=== PATIENT | male | born 1975 | race Two or more races ===

== ENCOUNTER 2018-11-26 06:10 | Emergency (ER) | payer BC, OTHER, SELFPAY ==
--- NOTE | 2018-11-26 06:18 | EDM.PDOC ---
ED HPI GENERAL MEDICAL PROBLEM - General Chief Complaint: General Stated Complaint: CHEST PAIN Time Seen by Provider: 11/26/18 06:18 Source of Information: Reports: Patient - History of Present Illness INITIAL COMMENTS - FREE TEXT/NARRATIVE: HISTORY AND PHYSICAL: History of present illness: [Patient presents with subjective intermittent fever and cough over the last 24 hours myalgias general malaise chest pain on deep inspiration No nausea vomiting and loose stools no chest pain at baseline no shortness breath headache dizziness or palpitation no bowel or urine symptoms ] Review of systems: As per history of present illness and below otherwise all systems reviewed and negative. Past medical history: As per history of present illness and as reviewed below otherwise noncontributory. Surgical history: As per history of present illness and as reviewed below otherwise noncontributory. Social history: No reported history of drug or alcohol abuse. Family history: As per history of present illness and as reviewed below otherwise noncontributory. Physical exam: HEENT: Atraumatic, normocephalic, pupils reactive, negative for conjunctival pallor or scleral icterus, mucous membranes moist, throat clear, neck supple, nontender, trachea midline. Lungs: Clear to auscultation, breath sounds equal bilaterally, chest nontender. Heart: S1S2, regular, negative for clicks, rubs, or JVD. Abdomen: Soft, nondistended, nontender. Negative for masses or hepatosplenomegaly. Negative for costovertebral tenderness. Pelvis: Stable nontender. Genitourinary: Deferred. Rectal: Deferred. Extremities: Atraumatic, negative for cords or calf pain. Neurovascular unremarkable. Neuro: Awake, alert, oriented. Cranial nerves II through XII unremarkable. Cerebellum unremarkable. Motor and sensory unremarkable throughout. Exam nonfocal. Diagnostics: []Influenza Chest 1 view EKG Therapeutics: []Tamiflu Phenergan with codeine Impression: Influenza Definitive disposition and diagnosis as appropriate pending reevaluation and review of above. 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 hernia repair when he was young Genitourinary History: Reports: None Neurological History: Reports: None Psychiatric History: Reports: None Endocrine/Metabolic History: Reports: None Hematologic History: Reports: None Dermatologic History: Reports: None - Infectious Disease History Infectious Disease History: Reports: None ED ROS GENERAL - Review of Systems Review Of Systems: See Below ED EXAM, GENERAL - Physical Exam Exam: See Below Course - Vital Signs Last Recorded V/S: Last Vital Signs Temp 98.8 F 11/26/18 06:10 Pulse 92 11/26/18 06:10 Resp 18 11/26/18 06:10 BP 156/90 H 11/26/18 06:10 Pulse Ox 98 11/26/18 06:10 - Orders/Labs/Meds Orders: Active Orders 24 hr Category Date Time Status RT Aerosol Therapy [RC] ASDIRECTED Care 11/26/18 06:28 Active Chest 1V Frontal [CR] Stat Exams 11/26/18 06:17 Taken Meds: Medications Discontinued Medications Generic Name Dose Route Start Last Admin Trade Name Freq PRN Reason Stop Dose Admin Albuterol/Ipratropium 3 ml 11/26/18 06:28 11/26/18 06:38 Duoneb 3.0-0.5 Mg/3 Ml NEB 11/26/18 06:29 3 ml ONETIME ONE Administration Departure - Departure Time of Disposition: 06:46 Disposition: Home, Self-Care 01 Condition: Good Clinical Impression: Influenza - Discharge Information Forms: ED Department Discharge Additional Instructions: The following information is given to patients seen in the emergency department who are being discharged to home. This information is to outline your options for follow-up care. We provide all patients seen in our emergency department with a follow-up referral. The need for follow-up, as well as the timing and circumstances, are variable depending upon the specifics of your emergency department visit. If you don't have a primary care physician on staff, we will provide you with a referral. We always advise you to contact your personal physician following an emergency department visit to inform them of the circumstance of the visit and for follow-up with them and/or the need for any referrals to a consulting specialist. The emergency department will also refer you to a specialist when appropriate. This referral assures that you have the opportunity for follow-up care with a specialist. All of these measure are taken in an effort to provide you with optimal care, which includes your follow-up. Under all circumstances we always encourage you to contact your private physician who remains a resource for coordinating your care. When calling for follow-up care, please make the office aware that this follow-up is from your recent emergency room visit. If for any reason you are refused follow-up, please contact the [facility] emergency department at and asked to speak to the emergency department charge nurse. - My Orders Last 24 Hours: My Active Orders 11/26/18 06:17 Chest 1V Frontal [CR] Stat 11/26/18 06:28 RT Aerosol Therapy [RC] ASDIRECTED - Assessment/Plan Last 24 Hours: My Active Orders 11/26/18 06:17 Chest 1V Frontal [CR] Stat 11/26/18 06:28 RT Aerosol Therapy [RC] ASDIRECTED
[2018-11-26] MEDS ORDERED: Albuterol/Ipratropium 3.0-0.5 MG/3 ML Neb Soln NEB ONE (06:28)
--- NOTE | 2018-11-26 06:56 | CR ---
INDICATION: Chest pain, shortness of breath TECHNIQUE: Chest radiograph 1 view COMPARISON: None FINDINGS: Mediastinum: The mediastinum is normal in appearance. The heart silhouette is normal in size and morphology. Lung: Both lungs are unremarkable in appearance. No sign of pleural effusion seen. No pneumothorax is identified. Musculoskeletal: Unremarkable for age. IMPRESSION: 1. No acute cardiopulmonary disease is seen. Dictated by: Leonel Jenkins MD @ 11/26/2018 06:55:06 (Electronically Signed)
[2018-11-26 06:58] VITALS: BP 153/81
== END 2018-11-26 06:57 | disposition home or self-care (01) ==
LOC: MW.ED 06:10
DX: J10.1 Influenza due to other identified influenza virus with other respiratory manifestations (principal)
CPT/HCPCS: 71045; 71045-26; 87804; 93005; 94640; 99284-25; J7620-GY

== ENCOUNTER 2024-05-14 12:19 | Emergency (ER) | payer BC ==
[2024-05-14 12:54] VITALS: BP 140/88
[2024-05-14] MEDS: methylPREDNISolone Sodium Succinate 125 MG/2 ML SDV IM ONE (13:03)
[2024-05-14] MEDS: Acetaminophen/oxyCODONE 325-5 MG Tab PO ONE (13:03)
[2024-05-14 13:09] VITALS: PULSE 81
== END 2024-05-14 13:27 | disposition home or self-care (01) ==
LOC: MW.ED 12:19
DX: M54.41 Lumbago with sciatica, right side (principal); Z75.8 Other problems related to medical facilities and other health care
CPT/HCPCS: 96372; 99283; A9270; J2919